=== PATIENT | male | born 1995 | race Two or more races ===

== ENCOUNTER → 2025-08-16 | Outpatient (CLI) | payer BC, OTHER, SELFPAY ==
--- NOTE | 2025-08-16 15:34 | XR_ITS ---
Examination: CT abdomen without intravenous contrast. Coronal 2-D reconstructions. Sagittal 2-D reconstructions. Date and time of exam: Without intravenous August 16, 2025, 1553 hours INDICATIONS: Umbilical hernia abdominal discomfort beginning 1 week ago CTDI: vol (mGy): 6.82 DLP: (mGycm): 223 Technique: Axial images of the abdomen have been obtained, 3 mm slice thickness, without intravenous contrast 2-D sagittal coronal reconstructions Low dose protocols were performed. One or more of the following dose reduction techniques were used; automated exposure control, adjustment of the mA and/or KV according to patient size, use of iterative reconstruction technique. Findings: No focal liver or splenic lesions No pancreatic mass Aorta normal size No bowel obstruction 20 mm fat-containing supraumbilical hernia defect image 82 10 mm umbilical fat-containing hernia defect No bowel present in these defects Normal appendix Grade 1 spondylolisthesis L5 on S1 IMPRESSION: 20 mm fat-containing supraumbilical hernia defect 10 mm umbilical fat-containing hernia defect
== END | disposition home or self-care (01) ==
PROVIDERS: PCP Nurse Practitioner Family; Referring Provider Nurse Practitioner Family; Visit Provider Nurse Practitioner Family
DX: K42.9 Umbilical hernia without obstruction or gangrene (principal)
CPT/HCPCS: 74150